=== PATIENT | female | born 2000 | race Caucasian/White ===

== ENCOUNTER 2021-02-21 14:30 | Emergency (ER) | payer OTHER ==
[2021-02-21] MEDS ORDERED: Sodium Chloride 0.9% 10 ML Syringe FLUSH PRN (14:46)
--- NOTE | 2021-02-21 15:17 | EDM.PDOC ---
ED HPI GENERAL MEDICAL PROBLEM - General Chief Complaint: Chest Pain Time Seen by Provider: 02/21/21 14:35 Source of Information: Reports: Patient History Limitations: Reports: No Limitations - History of Present Illness INITIAL COMMENTS - FREE TEXT/NARRATIVE: Pt. presents to ER with complaints of respirophasic chest pain. It is located in the R anterolateral chest with radiation into the back. Pt. denies every having pain like this in the past. She was mildly diaphoretic on arrival to ER. Pt. denies any nausea or vomiting. Denies any palpitations. She is a smoker. Pt. states that she has been having trouble with cough for some time, but doesn't think that it is worse than normal. Pt. states that the pain was quite rapid in onset. She denies any lightheadedness. Onset: Today Onset Date: 02/21/21 Location: Reports: Chest, Generalized Quality: Reports: Ache, Sharp Associated Symptoms: Reports: Chest Pain, Cough, Diaphoresis. Denies: Fever/Chills, Malaise, Nausea/Vomiting, Shortness of Breath, Syncope, Weakness Middle Chest Pain Score (Numeric/FACES): 8 - Related Data Allergies Allergy/AdvReac Type Severity Reaction Status Date / Time No Known Allergies Allergy Verified 02/21/21 15:00 Home Meds: Home Meds . [No Known Home Meds] 02/21/21 [History] Past Medical History - Past Health History Medical/Surgical History: Denies Medical/Surgical History Social & Family History - Tobacco Use Tobacco Use Status *Q: Current Every Day Tobacco User Years of Tobacco use: 4 Packs/Tins Daily: 0.5 - Recreational Drug Use Recreational Drug Use: No ED ROS GENERAL - Review of Systems Review Of Systems: See Below Constitutional: Reports: No Symptoms HEENT: Reports: No Symptoms Respiratory: Reports: Pleuritic Chest Pain, Cough Cardiovascular: Reports: Chest Pain Endocrine: Reports: No Symptoms GI/Abdominal: Reports: No Symptoms : Reports: No Symptoms Musculoskeletal: Reports: No Symptoms Skin: Reports: Diaphoresis Neurological: Reports: No Symptoms Psychiatric: Reports: No Symptoms Hematologic/Lymphatic: Reports: No Symptoms Immunologic: Reports: No Symptoms ED EXAM, GENERAL - Physical Exam Exam: See Below Exam Limited By: No Limitations General Appearance: Alert, WD/WN, No Apparent Distress Eye Exam: Bilateral Eye: EOMI Throat/Mouth: Normal Inspection, Normal Lips, Normal Teeth, Normal Gums, Normal Oropharynx, Normal Voice, No Airway Compromise Head: Atraumatic, Normocephalic Neck: Normal Inspection, Supple, Non-Tender, Full Range of Motion Respiratory/Chest: No Respiratory Distress, Decreased Breath Sounds Cardiovascular: Normal Peripheral Pulses, Regular Rate, Rhythm GI/Abdominal: Soft, Non-Tender, No Distention, No Mass (Female) Exam: Deferred Rectal (Female) Exam: Deferred Extremities: Normal Inspection, Normal Range of Motion, Non-Tender, No Pedal Edema, Normal Capillary Refill Neurological: Alert, Oriented, CN II-XII Intact, Normal Cognition, Normal Gait, Normal Reflexes Psychiatric: Normal Affect, Normal Mood Skin Exam: Warm, Dry, Intact, Normal Color, No Rash #1 Interpretation Rhythm: NSR Kirby: Normal P-Wave: Present QRS: Normal ST-T: Normal QT: Normal Course - Vital Signs Last Recorded V/S: Last Vital Signs Temp 36.8 C 02/21/21 14:30 Pulse 66 02/21/21 15:49 Resp 19 02/21/21 15:49 BP 121/73 02/21/21 15:49 Pulse Ox 98 02/21/21 15:49 - Orders/Labs/Meds Orders: Active Orders 24 hr Category Date Time Status Peripheral IV Insertion Adult [OM.PC] Routine Oth 02/21/21 14:46 Ordered Labs: Laboratory Tests 02/21/21 02/21/21 02/21/21 Range/Units 14:56 14:56 14:56 WBC 7.3 (4.0-10.0) x10^3/uL RBC 4.47 (4.00-5.50) x10^6/uL Hgb 13.4 (12.0-16.0) g/dL Hct 37.9 (33.0-47.0) % MCV 84.8 (78.0-93.0) fL MCH 30.0 (26.0-32.0) pg MCHC 35.4 (32.0-36.0) g/dL RDW Coeff of Rui 13.0 (10.0-15.0) % Plt Count 262 (130-400) x10^3/uL Neut % (Auto) 54.0 (50.0-80.0) % Lymph % (Auto) 27.6 (25.0-50.0) % [place] % (Auto) 9.2 (2.0-11.0) % Eos % (Auto) 8.4 H (0.0-4.0) % Baso % (Auto) 0.8 (0.2-1.2) % PT 11.3 (9.9-12.5) SEC INR 1.0 L (2.0-3.5) APTT 25.0 L (25.6-32.8) SEC D-Dimer, Quantitative 0.46 (<=0.58) mg/LFEU Sodium 138 (136-145) mmol/L Potassium 3.6 (3.5-5.1) mmol/L Chloride 106 (98-107) mmol/L Carbon Dioxide 20 L (21-32) mmol/L Anion Gap 15.6 H (5-15) mmol/L BUN 10 (7-18) mg/dL Creatinine 1.0 (0.55-1.02) mg/dL Est Cr Clr Drug Dosing TNP Estimated GFR (MDRD) > 60 Glucose 84 (70-99) mg/dL Calcium 8.6 (8.5-10.1) mg/dL Corrected Calcium 8.6 (8.5-10.1) mg/dL Magnesium (1.8-2.4) mg/dL Total Bilirubin 2.1 H (0.2-1.0) mg/dL AST 17 (15-37) U/L ALT 27 (14-59) U/L Alkaline Phosphatase 61 (46-116) U/L Troponin I High Sens < 4 (<=51) ng/L C-Reactive Protein < 0.2 (<=0.9) mg/dL NT-Pro-B Natriuret Pep (<=125) pg/mL Total Protein 7.4 (6.4-8.2) g/dL Albumin 4.0 (3.4-5.0) g/dL Globulin 3.4 Albumin/Globulin Ratio 1.18 07/22/21 Range/Units 14:56 WBC (4.0-10.0) x10^3/uL RBC (4.00-5.50) x10^6/uL Hgb (12.0-16.0) g/dL Hct (33.0-47.0) % MCV (78.0-93.0) fL MCH (26.0-32.0) pg MCHC (32.0-36.0) g/dL RDW Coeff of Rui (10.0-15.0) % Plt Count (130-400) x10^3/uL Neut % (Auto) (50.0-80.0) % Lymph % (Auto) (25.0-50.0) % [place] % (Auto) (2.0-11.0) % Eos % (Auto) (0.0-4.0) % Baso % (Auto) (0.2-1.2) % PT (9.9-12.5) SEC INR (2.0-3.5) APTT (25.6-32.8) SEC D-Dimer, Quantitative (<=0.58) mg/LFEU Sodium (136-145) mmol/L Potassium (3.5-5.1) mmol/L Chloride (98-107) mmol/L Carbon Dioxide (21-32) mmol/L Anion Gap (5-15) mmol/L BUN (7-18) mg/dL Creatinine (0.55-1.02) mg/dL Est Cr Clr Drug Dosing Estimated GFR (MDRD) Glucose (70-99) mg/dL Calcium (8.5-10.1) mg/dL Corrected Calcium (8.5-10.1) mg/dL Magnesium 1.9 (1.8-2.4) mg/dL Total Bilirubin (0.2-1.0) mg/dL AST (15-37) U/L ALT (14-59) U/L Alkaline Phosphatase (46-116) U/L Troponin I High Sens (<=51) ng/L C-Reactive Protein (<=0.9) mg/dL NT-Pro-B Natriuret Pep 256 H (<=125) pg/mL Total Protein (6.4-8.2) g/dL Albumin (3.4-5.0) g/dL Globulin Albumin/Globulin Ratio Meds: Medications Discontinued Medications Generic Name Dose Route Start Last Admin Trade Name Freq PRN Reason Stop Dose Admin Sodium Chloride 10 ml 02/21/21 14:46 Sodium Chloride 0.9% 10 Ml Syringe FLUSH ASDIRECTED PRN Keep Vein Open - Radiology Interpretation Free Text/Narrative:: Possible increased hilar opacification. No acute infiltrate. Departure - Departure Time of Disposition: 16:00 Disposition: Home, Self-Care 01 Clinical Impression: Bronchitis - Discharge Information Instructions: Albuterol inhalation aerosol, Acute Bronchitis, Adult, [id number], Azithromycin tablets, Prednisone tablets, Probiotics Referrals: PCP,None [Primary Care Provider] - Forms: ED Department Discharge Additional Instructions: Prednisone 20mg 2 tabs daily for 7 days Azithromycin 250mg 2 tabs daily x 1, then 1 tab daily for 4 more days Albuterol inhaler 2 puffs every 4-6 hours for cough/chest tightness Recheck in clinic in 10-14 days. Return to ER if you have worsening discomfort, increased shortness of breath, or feel like your heart is racing. Feel free to call the ER at any time if you have questions. Sepsis Event Note (ED) - Evaluation Sepsis Screening Result: No Definite Risk - Focused Exam Vital Signs: Vital Signs Temp Pulse Resp BP Pulse Ox 02/21/21 15:49 66 19 121/73 98 02/21/21 14:30 36.8 C 73 18 111/75 99 - Problem List Review Problem List Initiated/Reviewed/Updated: Yes - My Orders Last 24 Hours: My Active Orders 02/21/21 14:46 Peripheral IV Insertion Adult [OM.PC] Routine - Assessment/Plan Last 24 Hours: My Active Orders 02/21/21 14:46 Peripheral IV Insertion Adult [OM.PC] Routine Plan: Prednisone 20mg 2 tabs daily for 7 days Azithromycin 250mg 2 tabs daily x 1, then 1 tab daily for 4 more days Albuterol inhaler 2 puffs every 4-6 hours for cough/chest tightness Recheck in clinic in 10-14 days. Return to ER if you have worsening discomfort, increased shortness of breath, or feel like your heart is racing. Feel free to call the ER at any time if you have questions.
--- NOTE | 2021-02-21 15:19 | CR ---
[id number] RAD/RAD Chest PA or AP 1V EXAM: SINGLE VIEW CHEST. INDICATION: CHEST PAIN COMPARISON: NO PREVIOUS SIMILAR EXAM IS AVAILABLE FINDINGS: The lungs are clear There is no pneumothorax The cardiomediastinal contour is normal IMPRESSION: NO ACUTE PROCESS Dewey Crowe MD 02/21/21 [id number] Thank you for allowing us to participate in the care of your patient.
[2021-02-21 15:33] LABS: CHLORIDE,CL 106 mmol/L (98-107); SODIUM,NA 138 mmol/L (136-145)
[2021-02-21 15:36] LABS: ANION GAP 15.6 mmol/L (5-15)
== END 2021-02-21 16:04 | disposition home or self-care (01) ==
LOC: VM.ED 14:30
DX: J40 Bronchitis, not specified as acute or chronic (principal); F17.200 Nicotine dependence, unspecified, uncomplicated
CPT/HCPCS: 36415; 71045; 80053; 83735; 83880; 84484; 85025; 85379; 85610; 85730; 86140; 93005; 93010; 99284; 99285-25

== ENCOUNTER 2022-01-26 05:09 | Emergency (ER) | payer OTHER ==
[2022-01-26] MEDS ORDERED: Sodium Chloride 0.9% 1,000 ML IV SCH ×2 (05:30→06:15)
[2022-01-26 06:00] LABS: ANION GAP 16.6 mmol/L (5-15); CHLORIDE,CL 104 mmol/L (98-107); ESTIMATED GFR 81 mL/min (>=60); SODIUM,NA 141 mmol/L (136-145)
[2022-01-26 06:18] LABS: BARBITURATE SCREEN,URINE NEGATIVE (NEGATIVE); BENZODIAZEPINES SCREEN,URINE NEGATIVE (NEGATIVE); BUPRENORPHINE SCREEN,URINE NEGATIVE (NEGATIVE); METHAMPHETAMINE SCREEN, URINE NEGATIVE (NEGATIVE); THC SCREEN,URINE 50 NG/ML NEGATIVE (NEGATIVE)
== END 2022-01-26 08:10 | disposition home or self-care (01) ==
LOC: VM.ED 05:09
DX: S06.9X9A Unspecified intracranial injury with loss of consciousness of unspecified duration, initial encounter (principal); W18.09XA Striking against other object with subsequent fall, initial encounter; Y93.02 Activity, running
CPT/HCPCS: 36415; 70450; 80053; 80305-QW; 80307; 81003; 81025; 83735; 84100; 84443; 84484; 85025; 93005; 99284; 99285-25; J7030

== ENCOUNTER 2022-06-20 18:20 | Emergency (ER) | payer OTHER ==
[2022-06-20] MEDS ORDERED: Orphenadrine 60 MG/2 ML Inj IM ONE (18:38)
[2022-06-20] MEDS ORDERED: Ketorolac 30 MG/ML SDV IM ONE (18:38)
[2022-06-20] MEDS ORDERED: Take Home: Cyclobenzaprine 10 MG Tab, 4 Tab Pack PO ONE (18:49)
[2022-06-20] MEDS ORDERED: Take Home: Ketorolac 10 MG Tab, 4 Tab Pack PO ONE (18:49)
== END 2022-06-20 18:59 | disposition home or self-care (01) ==
LOC: VM.ED 18:20
DX: S43.402A Unspecified sprain of left shoulder joint, initial encounter (principal); X50.0XXA Overexertion from strenuous movement or load, initial encounter; Y99.0 Civilian activity done for income or pay
CPT/HCPCS: 96372; 99283; A9270; J1885; J2360

== ENCOUNTER 2022-08-10 20:23 | Emergency (ER) | payer OTHER | END 2022-08-10 21:30 | disposition home or self-care (01) | LOC: VM.ED 20:23 | DX: S99.921A Unspecified injury of right foot, initial encounter (principal); Z79.899 Other long term (current) drug therapy | CPT/HCPCS: 73620-RT; 99283 ==

== ENCOUNTER 2022-11-15 06:52 | Emergency (ER) | payer OTHER ==
[2022-11-15 07:28] LABS: BARBITURATE SCREEN,URINE NEGATIVE (NEGATIVE)
[2022-11-15 07:29] LABS: BENZODIAZEPINES SCREEN,URINE NEGATIVE (NEGATIVE); BUPRENORPHINE SCREEN,URINE NEGATIVE (NEGATIVE); METHAMPHETAMINE SCREEN, URINE NEGATIVE (NEGATIVE); THC SCREEN,URINE 50 NG/ML NEGATIVE (NEGATIVE)
[2022-11-15 07:36] LABS: CHLORIDE,CL 110 mmol/L (98-107); SODIUM,NA 143 mmol/L (136-145)
[2022-11-15 07:37] LABS: ANION GAP 12.9 mmol/L (5-15); ESTIMATED GFR 105 mL/min (>=60)
[2022-11-15] MEDS: Sodium Chloride 0.9% 1,000 ML IV ONE (07:58)
[2022-11-15] MEDS: levETIRAcetam in NaCl (iso-os) 2,000 MG in Premix Bag 1 BAG IV ONE ×2 (08:30)
== END 2022-11-15 09:15 | disposition home or self-care (01) ==
LOC: VM.ED 06:52 → SUPCPDRO 06:52 → VM.ED 09:15
DX: R56.9 Unspecified convulsions (principal); F10.10 Alcohol abuse, uncomplicated; Z72.0 Tobacco use; Y90.0 Blood alcohol level of less than 20 mg/100 ml
CPT/HCPCS: 36415; 80053; 80305-QW; 80307; 81003; 82550; 85025; 86140; 96360; 96365; 99284; 99284-25; J1953; J7030